=== PATIENT | female | born 1960 | race Caucasian/White ===

== ENCOUNTER 2018-03-17 18:03 | Emergency (ER) | payer OTHER, SELFPAY ==
[2018-03-17 18:21] VITALS: BP 131/77; PULSE 81; RESP 16; O2SAT 100; BMI 24.7
--- NOTE | 2018-03-17 18:35 | ED.RECABL ---
HPI - Recheck/Abnormal Lab/Rx <MOSHE Ortega - Last Filed: 03/17/18 22:13> General Chief Complaint: Recheck/Abnormal Lab/Rx Stated Complaint: ABNORMAL LAB RESULTS,TOLD TO GO TO ER Time Seen by Provider: 03/17/18 18:19 Source: patient Mode of arrival: ambulatory Limitations: no limitations History of Present Illness HPI narrative: Patient presents with chief complaint of reported elevated lipase from outside facility. States that they have reported her lipase is elevated before, and she came here and found to be normal. She is also concerned about her TSH level as the lab reported that her TSH was elevated and wanted to increase her Synthroid. She states she has not changed her Synthroid dosing in years. She states she does have a history of pancreatitis, but does not feel at acute pain at this moment in time. She does complain of some epigastric pain as well as some left lower quadrant pain. She denies any fevers nausea vomiting diarrhea palpitations or any other acute concerns. Her last bowel movement was today at approximately 2:30 pm. and was normal per report. Related Data Home Medications Medication Instructions Recorded Confirmed synbiwj-xctteopnzqmvu-kzxafcok 2 tab PO PRN PRN #0 10/28/17 [Excedrin Extra Strength] cyanocobalamin (vitamin B-12) 1,000 mcg IM QMONTH #0 10/28/17 ferrous sulfate [Iron (ferrous PO QPM #0 10/28/17 sulfate)] polyethylene glycol 3350 [Miralax] 17 gm PO QDAY #0 10/28/17 vit-iron fum-folic ac 1 cap PO QPM #0 10/28/17 [Mynatal] thyroid (pork) [[place] Thyroid] 60 mg PO QDAY #0 10/28/17 Allergies Allergy/AdvReac Type Severity Reaction Status Date / Time No Known Drug Allergies Allergy Verified 03/17/18 19:57 Review of Systems <MOSHE Ortega - Last Filed: 03/17/18 22:13> Review of Systems GENERAL: Denies chills, fatigue, malaise, fever, sweats. HEENT: Denies sinus pain, ear pain, sore throat, difficulty swallowing, dizziness. RESPIRATORY: Denies dyspnea, cough, wheezing, hemoptysis, sputum. CARDIOVASCULAR: See HPI GASTROINTESTINAL: See HPI : Denies dysuria, frequency, incontinence, hematuria, urinary retention. MUSCULOSKELETAL: denies weakness, joint pain, or bony pain SKIN: Denies rash, skin lesions, or other NEUROLOGIC: Denies weakness, headache, numbness, change in speech, confusion, seizures, incoordination. PSYCHIATRIC: No concerning psychosocial issues. 12 point review of systems is negative except for those stated above Exam <MOSHE Ortega - Last Filed: 03/17/18 22:13> Narrative Exam Narrative: GENERAL: This is a well-nourished, in no acute distress with friend at bedside HEAD: Atraumatic. Normocephalic. No temporal or scalp tenderness. EYES: Pupils equal round and reactive. Extraocular motions intact. No scleral icterus. No injection or drainage. ENT: Nose without bleeding, purulent drainage or septal hematoma. Throat without erythema, tonsillar hypertrophy or exudate. Uvula midline. Airway patent. NECK: Trachea midline. No JVD or lymphadenopathy. Supple, nontender, no meningeal signs. CARDIOVASCULAR: Regular rate and rhythm without murmurs, gallops, or rubs. RESPIRATORY: Clear to auscultation. Breath sounds equal bilaterally. No wheezes, rales, or rhonchi. GASTROINTESTINAL: Abdomen flat, active bowel sounds all 4 quadrants. Pain to palpation epigastric area. Pain to palpation right lower quadrant. No guarding noted. Nonrigid abdomen. EXTREMITIES: No clubbing, cyanosis, or edema. No joint tenderness, effusion, or edema noted. BACK: Nontender without deformity or crepitance. No flank tenderness. NEURO: AOx3. SKIN: No rash or erythema. Initial Vital Signs Initial Vital Signs: Vital Signs Pulse Rate 81 03/17/18 18:21 Respiratory Rate 16 03/17/18 18:21 Blood Pressure 131/77 H 03/17/18 18:21 Pulse Oximetry 100 03/17/18 18:21 <Luis Stovlal DO - Last Filed: 03/18/18 01:02> Initial Vital Signs Initial Vital Signs: Vital Signs Pulse Rate 81 03/17/18 18:21 Respiratory Rate 16 03/17/18 18:21 Blood Pressure 131/77 H 03/17/18 18:21 Pulse Oximetry 100 03/17/18 18:21 Course <MOSHE Ortega - Last Filed: 03/17/18 22:13> Additional Information: I checked on the patient several times during her stay in the emergency department. She declined pain medication or nausea medication several times. I gave her a warm blanket several times. I discussed waiting for lab results and then waiting for CT results. I discussed at length return precautions of fever, worsening pain, inability to keep down fluids. I discussed the hypodense and the found on her liver and she plans on following up her primary care provider for further management. Orders Ordered: ED Orders 03/17/18 18:35 EKG-12 Lead Stat 03/17/18 18:50 Amylase Stat Complete Blood Count AUTO DIFF Stat Comprehensive Metabolic Panel Stat Lipase Stat Thyroid Stimulating Hormone Stat Troponin & CK Cardiac Panel Stat 03/17/18 19:57 CT abdomen pelvis w con Stat Discontinued Medications Sodium Chloride (Normal Saline 0.9%) 1,000 mls @ 1,000 mls/hr IV BOLUS ONE Stop: 03/17/18 20:55 Last Infusion: 03/17/18 21:18 Dose: 0 mls/hr Admin: 03/17/18 20:26 Dose: 1,000 mls/hr Sodium Chloride (Normal Saline 0.9%) 1,000 mls @ 1,000 mls/hr IV BOLUS ONE Stop: 03/17/18 20:56 Last Admin: 03/17/18 21:18 Dose: 1,000 mls/hr Vital Signs - 8 hr 03/17/18 18:21 03/17/18 20:33 03/17/18 21:53 Pulse Rate 81 74 75 Respiratory Rate 16 12 15 Blood Pressure 131/77 H Blood Pressure [Left Arm] 122/72 H 127/77 H Pulse Oximetry 100 99 98 <Luis Stovall DO - Last Filed: 03/18/18 01:02> Orders Ordered: ED Orders 03/17/18 18:35 EKG-12 Lead Stat 03/17/18 18:50 Amylase Stat Complete Blood Count AUTO DIFF Stat Comprehensive Metabolic Panel Stat Lipase Stat Thyroid Stimulating Hormone Stat Troponin & CK Cardiac Panel Stat 03/17/18 19:57 CT abdomen pelvis w con Stat Discontinued Medications Sodium Chloride (Normal Saline 0.9%) 1,000 mls @ 1,000 mls/hr IV BOLUS ONE Stop: 03/17/18 20:55 Last Infusion: 03/17/18 21:18 Dose: 0 mls/hr Admin: 03/17/18 20:26 Dose: 1,000 mls/hr Sodium Chloride (Normal Saline 0.9%) 1,000 mls @ 1,000 mls/hr IV BOLUS ONE Stop: 03/17/18 20:56 Last Admin: 03/17/18 21:18 Dose: 1,000 mls/hr Vital Signs - 8 hr 03/17/18 18:21 03/17/18 20:33 03/17/18 21:53 Pulse Rate 81 74 75 Respiratory Rate 16 12 15 Blood Pressure 131/77 H Blood Pressure [Left Arm] 122/72 H 127/77 H Pulse Oximetry 100 99 98 MDM - Recheck/Abnormal Lab/Rx <GERMAN Ortega- - Last Filed: 03/17/18 22:13> Lab Data Attestation: I reviewed the patient's lab results. Result diagrams: 03/17/18 18:50 03/17/18 18:50 Lab Results 03/17/18 03/17/18 03/17/18 Range/Units 18:50 18:50 18:50 WBC 6.9 (4.5-11.0) X10^3/uL RBC 3.86 L (4.0-5.2) X10^6/uL Hgb 12.9 (12.0-16.0) g/dL Hct 37.6 (36-46) % MCV 97.5 (80-100) fL MCH 33.4 (26-34) PG MCHC 34.2 (30-36) % RDW 13.2 (11.6-14.8) % Plt Count 276 (150-400) X10^3/uL Neut % (Auto) 59.0 (50-75) % Lymph % (Auto) 30.8 (25-40) % [place] % (Auto) 8.7 (3-14) % Eos % (Auto) 0.7 L (2-4) % Baso % (Auto) 0.8 (0-2) % Neut # (Auto) 4100 (5797-2294) /uL Sodium 138 (137-145) mmol/L Potassium 3.9 (3.4-5.1) mmol/L Chloride 102 (98-107) mmol/L Carbon Dioxide 28 (22-32) mmol/L BUN 16 (7-17) mg/dL Creatinine 0.80 (0.52-1.04) mg/dL Estimated GFR > 60.0 (>60) mL/min BUN/Creatinine Ratio 20.0 (6-22) Glucose 95 (70-100) mg/dL Calcium 9.5 (8.4-10.2) mg/dL Total Bilirubin 0.5 (0.2-1.3) mg/dL AST 37 H (14-36) IU/L ALT 33 (9-52) IU/L Alkaline Phosphatase 66 (38-126) U/L Total Creatine Kinase 86 (30-135) U/L Troponin I < 0.012 (0.01-0.034) ng/mL Total Protein 6.8 (6.3-8.2) g/dL Albumin 4.4 (3.5-5.0) g/dL Globulin 2.4 (1.7-4.1) g/dL Albumin/Globulin Ratio 1.8 (1.0-2.8) Amylase 167 H (30-110) U/L Lipase 528 H (23-300) U/L TSH 2.59 (0.47-4.68) uIU/mL Imaging Data CT scan - abdomen: Radiologist's impression: [place] [address] CT Scan Report Signed Patient: Mehnaz Ugalde MR#: [id number] : 1960 Acct:[id number] Age/Sex: 57 / F Date of Service: 03/17/18 Loc: ED Accession Number: [id number] Procedure: CT abdomen pelvis w con Ordering Provider: Rand Miguel [facility] PROCEDURE: CT ABDOMEN PELVIS W CON INDICATIONS: 57 year-old woman with elevated lipase, hx pancreatitis TECHNIQUE: After the administration of intravenous contrast, 5 mm thick sections acquired from the diaphragm to the symphysis. 5 mm coronal and sagittal reformats were acquired. For radiation dose reduction, the following was used: automated exposure control, adjustment of mA and/or kV according to patient size. COMPARISON: [facility], MR, ABDOMEN W&W/O CONTRAST, 06/02/2015, 9:16. [facility], MR, ABDOMEN W&W/O CONTRAST, 09/12/2015, 11:28. [facility], US, US ABDOMEN COMPLETE, 04/12/2016, 9:34 AM. [facility], MR, MR ABDOMEN WO/W CONTRAST, 02/02/2016, 11:09 AM. FINDINGS: Image quality: Excellent. ABDOMEN: Lung bases: Lung bases are clear. Heart size is normal. Solid organs: There is a 5 mm indeterminate hepatic hypodensity. Liver is normal in size and enhancement. Gallbladder is surgically absent. Biliary system is non dilated. Pancreas enhances normally. Spleen is normal in size and enhancement. No adrenal nodules. Kidneys demonstrate normal size and enhancement, without hydronephrosis. Peritoneum and bowel: Postsurgical changes are noted in stomach. Bowel loops demonstrate normal wall thickness and caliber. No free fluid or air. Nodes and vessels: No retroperitoneal or mesenteric adenopathy by size criteria. Aorta and inferior vena cava are normal in size. Miscellaneous: No ventral hernias. PELVIS: Genitourinary: Bladder wall thickness is normal. Miscellaneous: No inguinal hernias or adenopathy. Bones: No suspicious bony lesions. No vertebral body compression fractures. IMPRESSION: 1. Normal CT appearance of pancreas. No peripancreatic stranding, pancreatic duct dilation or evidence for pancreatic necrosis. No pancreatic calcification or pseudocyst. 2. Cholecystectomy. 3. Postsurgical changes in stomach. 4. A 5 mm indeterminate hepatic hypodensity, most likely a cyst. Dictated by: Brent Combs M.D. on 03/17/2018 at 20:40 Approved by: Brent Combs M.D. on 03/17/2018 at 20:47 ECG Data Attestation: I personally reviewed and interpreted this ECG as follows: Interpretation: Sinus rhythm. Ventricular rate 72. No ST elevation or depression. No ectopy noted. MDM Narrative Medical decision making narrative: The patient presented with request for verification of her elevated lipase found at an outside lab. She also requested verification of her 2 thyroid levels. She was found have elevated amylase and lipase and correlating epigastric pain. She declined pain medications several times. The she received 2 L of IVF and had a CT scan. Her CT scan did not show any clear findings of pancreatitis. However given her elevated labs, I suggested pushing fluids and clear liquid diet with follow-up with her primary care provider. She was also found have a hypodense mass in her liver. I informed her of this and recommended follow up with her primary care provider. I discussed at length strict return precautions to the emergency department if worsening pain, fevers, inability keep down fluids. Patient has no questions or concerns and plans on following up with her primary care provider. She declined pain medication upon discharge. She also declined nausea medication. <Luis Vinsonarash, DO - Last Filed: 03/18/18 01:02> Lab Data Lab Results 03/17/18 03/17/18 03/17/18 Range/Units 18:50 18:50 18:50 WBC 6.9 (4.5-11.0) X10^3/uL RBC 3.86 L (4.0-5.2) X10^6/uL Hgb 12.9 (12.0-16.0) g/dL Hct 37.6 (36-46) % MCV 97.5 (80-100) fL MCH 33.4 (26-34) PG MCHC 34.2 (30-36) % RDW 13.2 (11.6-14.8) % Plt Count 276 (150-400) X10^3/uL Neut % (Auto) 59.0 (50-75) % Lymph % (Auto) 30.8 (25-40) % [place] % (Auto) 8.7 (3-14) % Eos % (Auto) 0.7 L (2-4) % Baso % (Auto) 0.8 (0-2) % Neut # (Auto) 4100 (6279-0375) /uL Sodium 138 (137-145) mmol/L Potassium 3.9 (3.4-5.1) mmol/L Chloride 102 (98-107) mmol/L Carbon Dioxide 28 (22-32) mmol/L BUN 16 (7-17) mg/dL Creatinine 0.80 (0.52-1.04) mg/dL Estimated GFR > 60.0 (>60) mL/min BUN/Creatinine Ratio 20.0 (6-22) Glucose 95 (70-100) mg/dL Calcium 9.5 (8.4-10.2) mg/dL Total Bilirubin 0.5 (0.2-1.3) mg/dL AST 37 H (14-36) IU/L ALT 33 (9-52) IU/L Alkaline Phosphatase 66 (38-126) U/L Total Creatine Kinase 86 (30-135) U/L Troponin I < 0.012 (0.01-0.034) ng/mL Total Protein 6.8 (6.3-8.2) g/dL Albumin 4.4 (3.5-5.0) g/dL Globulin 2.4 (1.7-4.1) g/dL Albumin/Globulin Ratio 1.8 (1.0-2.8) Amylase 167 H (30-110) U/L Lipase 528 H (23-300) U/L TSH 2.59 (0.47-4.68) uIU/mL Discharge Plan Departure Patient Disposition: Home, Self-Care Clinical Impression: Pancreatitis, Hypodense mass of liver Discharge Date/Time: 03/17/18 22:19 Interventions: ED Discharge Assessment Last Done: 03/17/18 22:18 Instructions: DI for Pancreatitis Activity Restrictions/Additional Instructions: Today we did blood work and imaging. Your CT did not show any signs of pancreatitis, but your lipase and amylase are elevated. Your TSH is 2.59. I would like you to push fluids, do a clear liquid diet and follow up with her primary care provider. Your also noted to have a ?hypodense area? in your liver. I would like you to follow up with your primary care provider regarding this. Come back to the emergency department if you develop any fevers, worsening pain, or inability to keep down fluids. Prescriptions: No Action polyethylene glycol 3350 [Miralax] 17 GM powder in packet 17 gm PO QDAY Qty: 0 RF: 0 thyroid (pork) [[place] Thyroid] 60 MG tablet 60 mg PO QDAY Qty: 0 RF: 0 ferrous sulfate [Iron (ferrous sulfate)] 325 mg (65 mg iron) Tablet PO QPM Qty: 0 RF: 0 vit-iron fum-folic ac [Mynatal] 1 EACH capsule 1 cap PO QPM Qty: 0 RF: 0 cyanocobalamin (vitamin B-12) 1,000 MCG/1 ML solution 1,000 mcg IM QMONTH Qty: 0 RF: 0 ajminqq-mjhxjjyzxrtae-racdiadi [Excedrin Extra Strength] 1 EACH tablet 2 tab PO PRN PRNQty: 0 RF: 0 Referrals: RossiAmanda, CUT OFF MACHINE OPERATOR-BC [Primary Care Provider] - <Luis Stovall DO - Last Filed: 03/18/18 01:02> Cosign ED Attending Bradley Attestation: I was available for consultation during this patient's emergency department encounter
--- NOTE | 2018-03-17 18:47 | ED_ITS ---
HPI - Recheck/Abnormal Lab/Rx <MOSHE Ortega - Last Filed: 03/17/18 22:13> General Chief Complaint: Recheck/Abnormal Lab/Rx Stated Complaint: ABNORMAL LAB RESULTS,TOLD TO GO TO ER Time Seen by Provider: 03/17/18 18:19 Source: patient Mode of arrival: ambulatory Limitations: no limitations History of Present Illness HPI narrative: Patient presents with chief complaint of reported elevated lipase from outside facility. States that they have reported her lipase is elevated before, and she came here and found to be normal. She is also concerned about her TSH level as the lab reported that her TSH was elevated and wanted to increase her Synthroid. She states she has not changed her Synthroid dosing in years. She states she does have a history of pancreatitis, but does not feel at acute pain at this moment in time. She does complain of some epigastric pain as well as some left lower quadrant pain. She denies any fevers nausea vomiting diarrhea palpitations or any other acute concerns. Her last bowel movement was today at approximately 2:30 pm. and was normal per report. Related Data Home Medications Medication Instructions Recorded Confirmed [id number] 2 tab PO PRN PRN #0 10/28/17 [Excedrin Extra Strength] cyanocobalamin (vitamin B-12) 1,000 mcg IM QMONTH #0 10/28/17 ferrous sulfate [Iron (ferrous PO QPM #0 10/28/17 sulfate)] polyethylene glycol 3350 [Miralax] 17 gm PO QDAY #0 10/28/17 vit-iron fum-folic ac 1 cap PO QPM #0 10/28/17 [Mynatal] thyroid (pork) [Ralston Thyroid] 60 mg PO QDAY #0 10/28/17 Allergies Allergy/AdvReac Type Severity Reaction Status Date / Time No Known Drug Allergies Allergy Verified 03/17/18 19:57 Review of Systems <MOSHE Ortega - Last Filed: 03/17/18 22:13> Review of Systems GENERAL: Denies chills, fatigue, malaise, fever, sweats. HEENT: Denies sinus pain, ear pain, sore throat, difficulty swallowing, dizziness. RESPIRATORY: Denies dyspnea, cough, wheezing, hemoptysis, sputum. CARDIOVASCULAR: See HPI GASTROINTESTINAL: See HPI : Denies dysuria, frequency, incontinence, hematuria, urinary retention. MUSCULOSKELETAL: denies weakness, joint pain, or bony pain SKIN: Denies rash, skin lesions, or other NEUROLOGIC: Denies weakness, headache, numbness, change in speech, confusion, seizures, incoordination. PSYCHIATRIC: No concerning psychosocial issues. 12 point review of systems is negative except for those stated above Exam <MOSHE Ortega - Last Filed: 03/17/18 22:13> Narrative Exam Narrative: GENERAL: This is a well-nourished, in no acute distress with friend at bedside HEAD: Atraumatic. Normocephalic. No temporal or scalp tenderness. EYES: Pupils equal round and reactive. Extraocular motions intact. No scleral icterus. No injection or drainage. ENT: Nose without bleeding, purulent drainage or septal hematoma. Throat without erythema, tonsillar hypertrophy or exudate. Uvula midline. Airway patent. NECK: Trachea midline. No JVD or lymphadenopathy. Supple, nontender, no meningeal signs. CARDIOVASCULAR: Regular rate and rhythm without murmurs, gallops, or rubs. RESPIRATORY: Clear to auscultation. Breath sounds equal bilaterally. No wheezes , rales, or rhonchi. GASTROINTESTINAL: Abdomen flat, active bowel sounds all 4 quadrants. Pain to palpation epigastric area. Pain to palpation right lower quadrant. No guarding noted. Nonrigid abdomen. EXTREMITIES: No clubbing, cyanosis, or edema. No joint tenderness, effusion, or edema noted. BACK: Nontender without deformity or crepitance. No flank tenderness. NEURO: AOx3. SKIN: No rash or erythema. Initial Vital Signs Initial Vital Signs: Vital Signs Pulse Rate 81 03/17/18 18:21 Respiratory Rate 16 03/17/18 18:21 Blood Pressure 131/77 H 03/17/18 18:21 Pulse Oximetry 100 03/17/18 18:21 <Luis Stovall DO - Last Filed: 03/18/18 01:02> Initial Vital Signs Initial Vital Signs: Vital Signs Pulse Rate 81 03/17/18 18:21 Respiratory Rate 16 03/17/18 18:21 Blood Pressure 131/77 H 03/17/18 18:21 Pulse Oximetry 100 03/17/18 18:21 Course <MOSHE Ortega - Last Filed: 03/17/18 22:13> Additional Information: I checked on the patient several times during her stay in the emergency department. She declined pain medication or nausea medication several times. I gave her a warm blanket several times. I discussed waiting for lab results and then waiting for CT results. I discussed at length return precautions of fever, worsening pain, inability to keep down fluids. I discussed the hypodense and the found on her liver and she plans on following up her primary care provider for further management. Orders Ordered: ED Orders 03/17/18 18:35 EKG-12 Lead Stat 03/17/18 18:50 Amylase Stat Complete Blood Count AUTO DIFF Stat Comprehensive Metabolic Panel Stat Lipase Stat Thyroid Stimulating Hormone Stat Troponin & CK Cardiac Panel Stat 03/17/18 19:57 CT abdomen pelvis w con Stat Discontinued Medications Sodium Chloride (Normal Saline 0.9%) 1,000 mls @ 1,000 mls/hr IV BOLUS ONE Stop: 03/17/18 20:55 Last Infusion: 03/17/18 21:18 Dose: 0 mls/hr Admin: 03/17/18 20:26 Dose: 1,000 mls/hr Sodium Chloride (Normal Saline 0.9%) 1,000 mls @ 1,000 mls/hr IV BOLUS ONE Stop: 03/17/18 20:56 Last Admin: 03/17/18 21:18 Dose: 1,000 mls/hr Vital Signs - 8 hr 03/17/18 18:21 03/17/18 20:33 03/17/18 21:53 Pulse Rate 81 74 75 Respiratory Rate 16 12 15 Blood Pressure 131/77 H Blood Pressure [Left Arm] 122/72 H 127/77 H Pulse Oximetry 100 99 98 <Luis Stovall DO - Last Filed: 03/18/18 01:02> Orders Ordered: ED Orders 03/17/18 18:35 EKG-12 Lead Stat 03/17/18 18:50 Amylase Stat Complete Blood Count AUTO DIFF Stat Comprehensive Metabolic Panel Stat Lipase Stat Thyroid Stimulating Hormone Stat Troponin & CK Cardiac Panel Stat 03/17/18 19:57 CT abdomen pelvis w con Stat Discontinued Medications Sodium Chloride (Normal Saline 0.9%) 1,000 mls @ 1,000 mls/hr IV BOLUS ONE Stop: 03/17/18 20:55 Last Infusion: 03/17/18 21:18 Dose: 0 mls/hr Admin: 03/17/18 20:26 Dose: 1,000 mls/hr Sodium Chloride (Normal Saline 0.9%) 1,000 mls @ 1,000 mls/hr IV BOLUS ONE Stop: 03/17/18 20:56 Last Admin: 03/17/18 21:18 Dose: 1,000 mls/hr Vital Signs - 8 hr 03/17/18 18:21 03/17/18 20:33 03/17/18 21:53 Pulse Rate 81 74 75 Respiratory Rate 16 12 15 Blood Pressure 131/77 H Blood Pressure [Left Arm] 122/72 H 127/77 H Pulse Oximetry 100 99 98 MDM - Recheck/Abnormal Lab/Rx <GERMAN Ortega- - Last Filed: 03/17/18 22:13> Lab Data Attestation: I reviewed the patient's lab results. Result diagrams: 03/17/18 18:50 03/17/18 18:50 Lab Results 03/17/18 03/17/18 03/17/18 Range/Units 18:50 18:50 18:50 WBC 6.9 (4.5-11.0) X10^3/uL RBC 3.86 L (4.0-5.2) X10^6/uL Hgb 12.9 (12.0-16.0) g/dL Hct 37.6 (36-46) % MCV 97.5 (80-100) fL MCH 33.4 (26-34) PG MCHC 34.2 (30-36) % RDW 13.2 (11.6-14.8) % Plt Count 276 (150-400) X10^3/uL Neut % (Auto) 59.0 (50-75) % Lymph % (Auto) 30.8 (25-40) % [place] % (Auto) 8.7 (3-14) % Eos % (Auto) 0.7 L (2-4) % Baso % (Auto) 0.8 (0-2) % Neut # (Auto) 4100 (2499-2555) /uL Sodium 138 (137-145) mmol/L Potassium 3.9 (3.4-5.1) mmol/L Chloride 102 (98-107) mmol/L Carbon Dioxide 28 (22-32) mmol/L BUN 16 (7-17) mg/dL Creatinine 0.80 (0.52-1.04) mg/dL Estimated GFR > 60.0 (>60) mL/min BUN/Creatinine Ratio 20.0 (6-22) Glucose 95 (70-100) mg/dL Calcium 9.5 (8.4-10.2) mg/dL Total Bilirubin 0.5 (0.2-1.3) mg/dL AST 37 H (14-36) IU/L ALT 33 (9-52) IU/L Alkaline Phosphatase 66 (38-126) U/L Total Creatine Kinase 86 (30-135) U/L Troponin I < 0.012 (0.01-0.034) ng/mL Total Protein 6.8 (6.3-8.2) g/dL Albumin 4.4 (3.5-5.0) g/dL Globulin 2.4 (1.7-4.1) g/dL Albumin/Globulin Ratio 1.8 (1.0-2.8) Amylase 167 H (30-110) U/L Lipase 528 H (23-300) U/L TSH 2.59 (0.47-4.68) uIU/mL Imaging Data CT scan - abdomen: Radiologist's impression: [place] [address] CT Scan Report Signed Patient: Mehnaz Ugalde MR#: [id number] : 1960 Acct:[id number] Age/Sex: 57 / F Date of Service: 03/17/18 Loc: ED Accession Number: [id number] Procedure: CT abdomen pelvis w con Ordering Provider: Rand Miguel [facility] PROCEDURE: CT ABDOMEN PELVIS W CON INDICATIONS: 57 year-old woman with elevated lipase, hx pancreatitis TECHNIQUE: After the administration of intravenous contrast, 5 mm thick sections acquired from the diaphragm to the symphysis. 5 mm coronal and sagittal reformats were acquired. For radiation dose reduction, the following was used: automated exposure control, adjustment of mA and/or kV according to patient size. COMPARISON: [facility], MR, ABDOMEN W&W/O CONTRAST, 06/02/2015, 9: 16. [facility], MR, ABDOMEN W&W/O CONTRAST, 09/12/2015, 11:28. [facility], US, US ABDOMEN COMPLETE, 04/12/2016, 9:34 AM. [facility] , MR, MR ABDOMEN WO/W CONTRAST, 02/02/2016, 11:09 AM. FINDINGS: Image quality: Excellent. ABDOMEN: Lung bases: Lung bases are clear. Heart size is normal. Solid organs: There is a 5 mm indeterminate hepatic hypodensity. Liver is normal in size and enhancement. Gallbladder is surgically absent. Biliary system is non dilated. Pancreas enhances normally. Spleen is normal in size and enhancement. No adrenal nodules. Kidneys demonstrate normal size and enhancement, without hydronephrosis. Peritoneum and bowel: Postsurgical changes are noted in stomach. Bowel loops demonstrate normal wall thickness and caliber. No free fluid or air. Nodes and vessels: No retroperitoneal or mesenteric adenopathy by size criteria. Aorta and inferior vena cava are normal in size. Miscellaneous: No ventral hernias. PELVIS: Genitourinary: Bladder wall thickness is normal. Miscellaneous: No inguinal hernias or adenopathy. Bones: No suspicious bony lesions. No vertebral body compression fractures. IMPRESSION: 1. Normal CT appearance of pancreas. No peripancreatic stranding, pancreatic duct dilation or evidence for pancreatic necrosis. No pancreatic calcification or pseudocyst. 2. Cholecystectomy. 3. Postsurgical changes in stomach. 4. A 5 mm indeterminate hepatic hypodensity, most likely a cyst. Dictated by: Brent Combs M.D. on 03/17/2018 at 20:40 Approved by: Brent Combs M.D. on 03/17/2018 at 20:47 ECG Data Attestation: I personally reviewed and interpreted this ECG as follows: Interpretation: Sinus rhythm. Ventricular rate 72. No ST elevation or depression. No ectopy noted. MDM Narrative Medical decision making narrative: The patient presented with request for verification of her elevated lipase found at an outside lab. She also requested verification of her 2 thyroid levels. She was found have elevated amylase and lipase and correlating epigastric pain. She declined pain medications several times. The she received 2 L of IVF and had a CT scan. Her CT scan did not show any clear findings of pancreatitis. However given her elevated labs, I suggested pushing fluids and clear liquid diet with follow-up with her primary care provider. She was also found have a hypodense mass in her liver. I informed her of this and recommended follow up with her primary care provider. I discussed at length strict return precautions to the emergency department if worsening pain, fevers, inability keep down fluids. Patient has no questions or concerns and plans on following up with her primary care provider. She declined pain medication upon discharge. She also declined nausea medication. <Luis Vinsonarash, DO - Last Filed: 03/18/18 01:02> Lab Data Lab Results 03/17/18 03/17/18 03/17/18 Range/Units 18:50 18:50 18:50 WBC 6.9 (4.5-11.0) X10^3/uL RBC 3.86 L (4.0-5.2) X10^6/uL Hgb 12.9 (12.0-16.0) g/dL Hct 37.6 (36-46) % MCV 97.5 (80-100) fL MCH 33.4 (26-34) PG MCHC 34.2 (30-36) % RDW 13.2 (11.6-14.8) % Plt Count 276 (150-400) X10^3/uL Neut % (Auto) 59.0 (50-75) % Lymph % (Auto) 30.8 (25-40) % [place] % (Auto) 8.7 (3-14) % Eos % (Auto) 0.7 L (2-4) % Baso % (Auto) 0.8 (0-2) % Neut # (Auto) 4100 (5562-4888) /uL Sodium 138 (137-145) mmol/L Potassium 3.9 (3.4-5.1) mmol/L Chloride 102 (98-107) mmol/L Carbon Dioxide 28 (22-32) mmol/L BUN 16 (7-17) mg/dL Creatinine 0.80 (0.52-1.04) mg/dL Estimated GFR > 60.0 (>60) mL/min BUN/Creatinine Ratio 20.0 (6-22) Glucose 95 (70-100) mg/dL Calcium 9.5 (8.4-10.2) mg/dL Total Bilirubin 0.5 (0.2-1.3) mg/dL AST 37 H (14-36) IU/L ALT 33 (9-52) IU/L Alkaline Phosphatase 66 (38-126) U/L Total Creatine Kinase 86 (30-135) U/L Troponin I < 0.012 (0.01-0.034) ng/mL Total Protein 6.8 (6.3-8.2) g/dL Albumin 4.4 (3.5-5.0) g/dL Globulin 2.4 (1.7-4.1) g/dL Albumin/Globulin Ratio 1.8 (1.0-2.8) Amylase 167 H (30-110) U/L Lipase 528 H (23-300) U/L TSH 2.59 (0.47-4.68) uIU/mL Discharge Plan Departure Patient Disposition: Home, Self-Care Clinical Impression: Pancreatitis, Hypodense mass of liver Discharge Date/Time: 03/17/18 22:19 Interventions: ED Discharge Assessment Last Done: 03/17/18 22:18 Instructions: DI for Pancreatitis Activity Restrictions/Additional Instructions: Today we did blood work and imaging. Your CT did not show any signs of pancreatitis, but your lipase and amylase are elevated. Your TSH is 2.59. I would like you to push fluids, do a clear liquid diet and follow up with her primary care provider. Your also noted to have a ?hypodense area? in your liver. I would like you to follow up with your primary care provider regarding this. Come back to the emergency department if you develop any fevers, worsening pain, or inability to keep down fluids. Prescriptions: No Action polyethylene glycol 3350 [Miralax] 17 GM powder in packet 17 gm PO QDAY Qty: 0 RF: 0 thyroid (pork) [Ralston Thyroid] 60 MG tablet 60 mg PO QDAY Qty: 0 RF: 0 ferrous sulfate [Iron (ferrous sulfate)] 325 mg (65 mg iron) Tablet PO QPM Qty: 0 RF: 0 vit-iron fum-folic ac [Mynatal] 1 EACH capsule 1 cap PO QPM Qty: 0 RF: 0 cyanocobalamin (vitamin B-12) 1,000 MCG/1 ML solution 1,000 mcg IM QMONTH Qty: 0 RF: 0 vxazehy-qfzgqhxzrojvg-uwagzdbs [Excedrin Extra Strength] 1 EACH tablet 2 tab PO PRN PRNQty: 0 RF: 0 Referrals: RossiAmanda, [facility] [Primary Care Provider] - <Luis Stovall DO - Last Filed: 03/18/18 01:02> Cosign ED Attending Bradley Attestation: I was available for consultation during this patient's emergency department encounter
[2018-03-17 18:58] LABS: Add Manual Diff / Slide Review NO; Basophils Percent Auto 0.8 % (0-2); Eosinophils Percent Auto 0.7 % (2-4); Hematocrit 37.6 % (36-46); Hemoglobin 12.9 g/dL (12.0-16.0); Lymphocytes Percent Auto 30.8 % (25-40); Mean Corpuscular HGB Conc 34.2 % (30-36); Mean Corpuscular Hemoglobin 33.4 PG (26-34); Mean Corpuscular Volume 97.5 fL (80-100); Monocytes Percent Auto 8.7 % (3-14); Neutrophils Absolute Auto 4100 /uL (3000-5900); Platelet Count 276 X10^3/uL (150-400); Red Blood Cell Count 3.86 X10^6/uL (4.0-5.2); Red Cell Distribution Width 13.2 % (11.6-14.8); White Blood Cell Count 6.9 X10^3/uL (4.5-11.0)
[2018-03-17 19:20] LABS: Alanine Aminotransferase 33 IU/L (9-52); Albumin 4.4 g/dL (3.5-5.0); Albumin Globulin Ratio 1.8 (1.0-2.8); Alkaline Phosphatase 66 U/L (38-126); Amylase 167 U/L (30-110); Aspartate Aminotransferase 37 IU/L (14-36); Bilirubin Total 0.5 mg/dL (0.2-1.3); Blood Urea Nitrogen 16 mg/dL (7-17); Calcium 9.5 mg/dL (8.4-10.2); Carbon Dioxide 28 mmol/L (22-32); Chloride 102 mmol/L (98-107); Creatine Kinase 86 U/L (30-135); Estimated Glomerular Filt Rate > 60.0 mL/min (>60); Globulin 2.4 g/dL (1.7-4.1); Glucose 95 mg/dL (70-100); HEMOLYSIS < 15 (0-50); Lipase 528 U/L (23-300); Potassium 3.9 mmol/L (3.4-5.1); Sodium 138 mmol/L (137-145); Total Protein 6.8 g/dL (6.3-8.2)
[2018-03-17 19:32] LABS: Troponin I < 0.012 ng/mL (0.01-0.034)
[2018-03-17 19:50] LABS: Thyroid Stimulating Hormone 2.59 uIU/mL (0.47-4.68)
--- NOTE | 2018-03-17 19:57 | DI.CT.S_ITS ---
PROCEDURE: CT ABDOMEN PELVIS W CON INDICATIONS: 57 year-old woman with elevated lipase, hx pancreatitis TECHNIQUE: After the administration of intravenous contrast, 5 mm thick sections acquired from the diaphragm to the symphysis. 5 mm coronal and sagittal reformats were acquired. For radiation dose reduction, the following was used: automated exposure control, adjustment of mA and/or kV according to patient size. COMPARISON: [facility], MR, ABDOMEN W&W/O CONTRAST, 06/02/2015, 9:16. [facility], MR, ABDOMEN W&W/O CONTRAST, 09/12/2015, 11:28. [facility], US, US ABDOMEN COMPLETE, 04/12/2016, 9:34 AM. [facility], MR, MR ABDOMEN WO/W CONTRAST, 02/02/2016, 11:09 AM. FINDINGS: Image quality: Excellent. ABDOMEN: Lung bases: Lung bases are clear. Heart size is normal. Solid organs: There is a 5 mm indeterminate hepatic hypodensity. Liver is normal in size and enhancement. Gallbladder is surgically absent. Biliary system is non dilated. Pancreas enhances normally. Spleen is normal in size and enhancement. No adrenal nodules. Kidneys demonstrate normal size and enhancement, without hydronephrosis. Peritoneum and bowel: Postsurgical changes are noted in stomach. Bowel loops demonstrate normal wall thickness and caliber. No free fluid or air. Nodes and vessels: No retroperitoneal or mesenteric adenopathy by size criteria. Aorta and inferior vena cava are normal in size. Miscellaneous: No ventral hernias. PELVIS: Genitourinary: Bladder wall thickness is normal. Miscellaneous: No inguinal hernias or adenopathy. Bones: No suspicious bony lesions. No vertebral body compression fractures. IMPRESSION: 1. Normal CT appearance of pancreas. No peripancreatic stranding, pancreatic duct dilation or evidence for pancreatic necrosis. No pancreatic calcification or pseudocyst. 2. Cholecystectomy. 3. Postsurgical changes in stomach. 4. A 5 mm indeterminate hepatic hypodensity, most likely a cyst. Dictated by: Brent Combs M.D. on 03/17/2018 at 20:40 Approved by: Brent Combs M.D. on 03/17/2018 at 20:47
[2018-03-17] MEDS: SODIUM CHLORIDE 0.9% 1,000 ML 1000 ML IV ×2 (20:26→21:18)
[2018-03-17 20:33] VITALS: BP 122/72; PULSE 74; RESP 12; O2SAT 99
[2018-03-17 21:53] VITALS: BP 127/77; PULSE 75; RESP 15; O2SAT 98
== END 2018-03-17 22:19 | disposition home or self-care (01) ==
PROVIDERS: Emergency Provider Nurse Practitioner Family; PCP Nurse Practitioner Family
DX: K85.90 Acute pancreatitis without necrosis or infection, unspecified (principal); R16.0 Hepatomegaly, not elsewhere classified
CPT/HCPCS: 36591; 74177; 80053; 81003; 82150; 82550; 82553; 83690; 84443; 84484; 85025; 93005; 93010; 96360; 99283; 99285; Q9967

== ENCOUNTER 2018-10-03 13:42 | Emergency (ER) | payer OTHER, SELFPAY ==
[2018-10-03 13:47] VITALS: BP 135/80; PULSE 65; RESP 14; TEMP 36.3; O2SAT 100; BMI 20.9
--- NOTE | 2018-10-03 14:10 | ED.ABDPAIN ---
HPI - Abdominal Pain General Chief Complaint: Abdominal Pain Stated Complaint: pancreatitis, nauseous, dizzy, head pain Time Seen by Provider: 10/03/18 13:47 Source: patient Mode of arrival: ambulatory Limitations: no limitations History of Present Illness HPI narrative: Patient is a 58-year-old female presenting with abdominal pain. She has a history of pancreatitis and feels like this may be another attack. She has had multiple surgeries including niece in and Cristofer-en-Y which she says has led to her pancreatitis. 3 days ago she had severe abdominal pain in the central of her stomach cause her to bend over. She today she feels like the pain is worse it is radiating through to her back which is abnormal. She has also had a headache on the left side of her head today she feels a little dizzy and lightheaded no nausea or vomiting. No visual changes or weakness. No chest pain or heart palpitations. She has tried to drink water today he does not feel like she is terribly dehydrated she also took Excedrin and had 2 cups of tea which are abnormal for her. She said the heparin has. MD complaint: abdominal pain Onset (ago): day(s) (3) Related Data Home Medications Medication Instructions Recorded Confirmed [id number]-nwiznvwgmmapa-eewokpax 2 tab PO PRN PRN #0 10/28/17 [Excedrin Extra Strength] cyanocobalamin (vitamin B-12) 1,000 mcg IM QMONTH #0 10/28/17 ferrous sulfate [Iron (ferrous PO QPM #0 10/28/17 sulfate)] polyethylene glycol 3350 [Miralax] 17 gm PO QDAY #0 10/28/17 vit-iron fum-folic ac 1 cap PO QPM #0 10/28/17 [Mynatal] thyroid (pork) [Marcell Thyroid] 60 mg PO QDAY #0 10/28/17 Allergies Allergy/AdvReac Type Severity Reaction Status Date / Time No Known Drug Allergies Allergy Verified 10/03/18 14:00 Review of Systems Review of Systems ROS Unobtainable: All systems reviewed & are unremarkable except as noted in HPI and below ENT Ears, Nose, Mouth, and Throat: Denies change in voice, Denies neck pain and Denies sore throat Cardiovascular Denies chest pain, Denies irregular heart rhythm, Reports lightheadedness, Denies palpitations, Denies dyspnea, Denies dyspnea on exertion and Denies orthopnea Respiratory Denies cough, Denies dyspnea, Denies dyspnea on exertion and Denies wheezing Gastrointestinal Gastrointestinal: Reports as per HPI, Reports abdominal pain, Denies diarrhea and Denies nausea Genitourinary Denies hematuria, Denies flank pain, Denies urinary incontinence and Denies urinary urgency Musculoskeletal Denies neck pain Integumentary/Breasts Denies pruritus, Denies erythema, Denies rash and Denies wounds Endocrine Denies palpitations Allergic/Immunologic Denies wheezing [facility] Medical History Hypothyroid (Acute) Pancreatitis (Acute) Surgical History History of Cristofer-en-Y gastric bypass (Acute) Social History Smoking Status: Unknown if ever smoked Social History Smoking Status: Unknown if ever smoked Exam Initial Vital Signs Initial Vital Signs: Vital Signs Temperature 97.4 F L 10/03/18 13:47 Pulse Rate 65 10/03/18 13:47 Respiratory Rate 14 10/03/18 13:47 Blood Pressure 135/80 10/03/18 13:47 Pulse Oximetry 100 10/03/18 13:47 GENERAL: well acute distress HEENT: Head atraumatic,EOMI, pupils reactive, CARDIOVASCULAR: Regular rate and rhythm without murmurs, rubs or gallops. RESPIRATORY: Breath sounds equal bilaterally, no wheezes rales or rhonchi. ABDOMEN: Soft, mild epigastric pain no guarding or rebound EXTREMITIES: Normal range of motion, no clubbing or edema. Neurovascularly intact NEUROLOGICAL: Alert and oriented x4.Normal gait and speech. SKIN: Warm, dry, no laceration, no petechiae, no rashes or lesions. Course Orders Ordered: ED Orders 10/03/18 14:15 CT abdomen pelvis w con Stat 10/03/18 14:20 Complete Blood Count AUTO DIFF Stat Comprehensive Metabolic Panel Stat Lipase Stat Discontinued Medications Sodium Chloride (Normal Saline 0.9%) 1,000 mls @ 1,000 mls/hr IV CONT BAILEY Last Infusion: 10/03/18 15:33 Dose: 0 mls/hr Admin: 10/03/18 14:28 Dose: 1,000 mls/hr Ketorolac Tromethamine (Toradol) 30 mg IV NOW ONE Stop: 10/03/18 17:03 Last Admin: 10/03/18 17:05 Dose: 30 mg Vital Signs - 8 hr 10/03/18 13:47 10/03/18 15:15 10/03/18 16:30 Temperature 97.4 F L Pulse Rate 65 72 79 Respiratory Rate 14 18 16 Blood Pressure 135/80 Blood Pressure [Left Arm] 124/64 117/74 Pulse Oximetry 100 99 99 MDM - Abdominal Pain Medical Records Attestation: I reviewed the patient's medical records. Lab Data Attestation: I reviewed the patient's lab results. Result diagrams: 10/03/18 14:20 10/03/18 14:20 Lab Results 10/03/18 10/03/18 Range/Units 14:20 14:20 WBC 7.7 (4.5-11.0) X10^3/uL RBC 3.93 L (4.0-5.2) X10^6/uL Hgb 12.9 (12.0-16.0) g/dL Hct 38.9 (36-46) % MCV 98.8 (80-100) fL MCH 32.8 (26-34) PG MCHC 33.2 (30-36) % RDW 13.3 (11.6-14.8) % Plt Count 252 (150-400) X10^3/uL Neut % (Auto) 65.4 (50-75) % Lymph % (Auto) 26.0 (25-40) % [place] % (Auto) 7.3 (3-14) % Eos % (Auto) 0.9 L (2-4) % Baso % (Auto) 0.4 (0-2) % Neut # (Auto) 5000 (9156-3110) /uL Lymph # (Auto) 2000 (0979-4875) /uL [place] # (Auto) 600 (0-900) /uL Eos # (Auto) 100 (0-450) /uL Baso # (Auto) 0 (0-100) /uL Sodium 132 L (137-145) mmol/L Potassium 3.8 (3.4-5.1) mmol/L Chloride 99 (98-107) mmol/L Carbon Dioxide 24 (22-32) mmol/L BUN 17 (7-17) mg/dL Creatinine 0.60 (0.52-1.04) mg/dL Estimated GFR > 60.0 (>60) mL/min BUN/Creatinine Ratio 28.3 H (6-22) Glucose 91 (70-100) mg/dL Calcium 9.5 (8.4-10.2) mg/dL Total Bilirubin 0.6 (0.2-1.3) mg/dL AST 37 H (14-36) IU/L ALT 40 (9-52) IU/L Alkaline Phosphatase 63 (38-126) U/L Total Protein 7.1 (6.3-8.2) g/dL Albumin 4.5 (3.5-5.0) g/dL Globulin 2.6 (1.7-4.1) g/dL Albumin/Globulin Ratio 1.7 (1.0-2.8) Lipase 94 (23-300) U/L Point of care testing: Urine Dip Bedside Urine Glucose Negative Bedside Urine Bilirubin - Negative Bedside Urine Ketone - Negative Urine Specific [place] 1.010 Bedside Urine Occult Blood - Negative Bedside Urine pH 6.5 Bedside Urine Protein - Negative Bedside Urine Urobilinogen - Negative Bedside Urine Nitrite - Negative Bedside Urine Leukocytes - Negative Esterase Imaging Data CT scan - abdomen: Radiologist's impression: PROCEDURE: CT ABDOMEN PELVIS W CON INDICATIONS: abdominal pain hx pancreatitis TECHNIQUE: After the administration of intravenous contrast, 5 mm thick sections acquired from the diaphragm to the symphysis. 5 mm coronal and sagittal reformats were acquired. For radiation dose reduction, the following was used: automated exposure control, adjustment of mA and/or kV according to patient size. COMPARISON: [facility], CT, CT ABDOMEN PELVIS W CON, 03/17/2018, 19:55. FINDINGS: Image quality: Excellent. ABDOMEN: Lung bases: Lung bases are clear. Heart size is normal. Solid organs: Liver is normal in size and enhancement. 5 mm hypoattenuating lesion in the right lobe the liver is stable. Gallbladder is surgically absent. Biliary system is non dilated. Pancreas enhances normally. Spleen is normal in size and enhancement. No adrenal nodules. Kidneys demonstrate normal size and enhancement, without hydronephrosis. Peritoneum and bowel: Postsurgical changes involving the stomach are stable compared to prior exam. Bowel loops demonstrate normal wall thickness and caliber. Large amount of stool noted in the right colon and transverse colon. Moderate amount of stool in the sigmoid colon. No free fluid or air. The appendix is not definitely visualized. Nodes and vessels: No retroperitoneal or mesenteric adenopathy by size criteria. Aorta and inferior vena cava are normal in size. Miscellaneous: No ventral hernias. PELVIS: Genitourinary: Bladder wall thickness is normal. Uterus is atrophied. Miscellaneous: No inguinal hernias or adenopathy. Bones: No suspicious bony lesions. No vertebral body compression fractures. Spine degenerative disease and facet arthropathy noted. IMPRESSION: 1. Postsurgical changes stable compared to prior examination. 2. No CT evidence of pancreatitis. 3. No dilated loops of bowel or bowel wall thickening. 4. Severe fecal loading in the right and transverse colon and moderate fecal A. involving the sigmoid colon clear. Please correlate with clinical data. 5. The appendix is not definitely visualized. No free fluid or free air identified adjacent to the cecum, however early manifestation of acute appendicitis cannot be excluded. Dictated by: Basia Melvin MD, PhD on 10/03/2018 at 16:59 MDM Narrative Medical decision making narrative: the patient was much relieved to hear that her lipase was normal. She thinks that her job and stress are significant contributors to her pain. We talked about coping with stress something that she is actually quite familiar with. His she knows what works for her she honestly just needs to do it. No sign of pancreatitis or any other intra-abdominal abnormality. Patient feels ready and able to go home. Discharge Plan Departure Patient Disposition: Home Clinical Impression: Abdominal pain Qualifiers: Abdominal location: generalized Qualified Code(s): R10.84 - Generalized abdominal pain Discharge Date/Time: 10/03/18 17:28 Interventions: ED Discharge Assessment Last Done: 10/03/18 17:28 Instructions: DI for Abdominal Pain-Adult Activity Restrictions/Additional Instructions: *You have been diagnosed with abdominal pain *What to do: at this time no evidence of pancreatitis. CT scan and blood work within normal limits and reassuring. *Continue to take medications as directed *Follow up with your primary care provider in 2-3 days *Return to ER if you should have Increasing abdominal pain, persistent vomiting, past now or any new, worsening or concerning symptoms Prescriptions: No Action polyethylene glycol 3350 [Miralax] 17 GM powder in packet 17 gm PO QDAY Qty: 0 RF: 0 thyroid (pork) [Marcell Thyroid] 60 MG tablet 60 mg PO QDAY Qty: 0 RF: 0 ferrous sulfate [Iron (ferrous sulfate)] 325 mg (65 mg iron) tablet PO QPM Qty: 0 RF: 0 vit-iron fum-folic ac [Mynatal] 1 EACH capsule 1 cap PO QPM Qty: 0 RF: 0 cyanocobalamin (vitamin B-12) 1,000 MCG/1 ML solution 1,000 mcg IM QMONTH Qty: 0 RF: 0 djnaayp-qejyypfztscvy-bisygpei [Excedrin Extra Strength] 1 EACH tablet 2 tab PO PRN PRNQty: 0 RF: 0 Referrals: Amanda Richey TACTICAL DEBRIEFER-BC [Primary Care Provider] -
--- NOTE | 2018-10-03 14:14 | ED_ITS ---
HPI - Abdominal Pain General Chief Complaint: Abdominal Pain Stated Complaint: pancreatitis, nauseous, dizzy, head pain Time Seen by Provider: 10/03/18 13:47 Source: patient Mode of arrival: ambulatory Limitations: no limitations History of Present Illness HPI narrative: Patient is a 58-year-old female presenting with abdominal pain. She has a history of pancreatitis and feels like this may be another attack. She has had multiple surgeries including niece in and Cristofer-en-Y which she says has led to her pancreatitis. 3 days ago she had severe abdominal pain in the central of her stomach cause her to bend over. She today she feels like the pain is worse it is radiating through to her back which is abnormal. She has also had a headache on the left side of her head today she feels a little dizzy and lightheaded no nausea or vomiting. No visual changes or weakness. No chest pain or heart palpitations. She has tried to drink water today he does not feel like she is terribly dehydrated she also took Excedrin and had 2 cups of tea which are abnormal for her. She said the heparin has. MD complaint: abdominal pain Onset (ago): day(s) (3) Related Data Home Medications Medication Instructions Recorded Confirmed zeieqxu-cnlxifkehqzno-hfpgwyvi 2 tab PO PRN PRN #0 10/28/17 [Excedrin Extra Strength] cyanocobalamin (vitamin B-12) 1,000 mcg IM QMONTH #0 10/28/17 ferrous sulfate [Iron (ferrous PO QPM #0 10/28/17 sulfate)] polyethylene glycol 3350 [Miralax] 17 gm PO QDAY #0 10/28/17 vit-iron fum-folic ac 1 cap PO QPM #0 10/28/17 [Mynatal] thyroid (pork) [Isabella Thyroid] 60 mg PO QDAY #0 10/28/17 Allergies Allergy/AdvReac Type Severity Reaction Status Date / Time No Known Drug Allergies Allergy Verified 10/03/18 14:00 Review of Systems Review of Systems ROS Unobtainable: All systems reviewed & are unremarkable except as noted in HPI and below ENT Ears, Nose, Mouth, and Throat: Denies change in voice, Denies neck pain and Denies sore throat Cardiovascular Denies chest pain, Denies irregular heart rhythm, Reports lightheadedness, Denies palpitations, Denies dyspnea, Denies dyspnea on exertion and Denies o rthopnea Respiratory Denies cough, Denies dyspnea, Denies dyspnea on exertion and Denies wheezing Gastrointestinal Gastrointestinal: Reports as per HPI, Reports abdominal pain, Denies diarrhea and Denies nausea Genitourinary Denies hematuria, Denies flank pain, Denies urinary incontinence and Denies urinary urgency Musculoskeletal Denies neck pain Integumentary/Breasts Denies pruritus, Denies erythema, Denies rash and Denies wounds Endocrine Denies palpitations Allergic/Immunologic Denies wheezing [facility] Medical History Hypothyroid (Acute) Pancreatitis (Acute) Surgical History History of Cristofer-en-Y gastric bypass (Acute) Social History Smoking Status: Unknown if ever smoked Social History Smoking Status: Unknown if ever smoked Exam Initial Vital Signs Initial Vital Signs: Vital Signs Temperature 97.4 F L 10/03/18 13:47 Pulse Rate 65 10/03/18 13:47 Respiratory Rate 14 10/03/18 13:47 Blood Pressure 135/80 10/03/18 13:47 Pulse Oximetry 100 10/03/18 13:47 GENERAL: well acute distress HEENT: Head atraumatic,EOMI, pupils reactive, CARDIOVASCULAR: Regular rate and rhythm without murmurs, rubs or gallops. RESPIRATORY: Breath sounds equal bilaterally, no wheezes rales or rhonchi. ABDOMEN: Soft, mild epigastric pain no guarding or rebound EXTREMITIES: Normal range of motion, no clubbing or edema. Neurovascularly intact NEUROLOGICAL: Alert and oriented x4.Normal gait and speech. SKIN: Warm, dry, no laceration, no petechiae, no rashes or lesions. Course Orders Ordered: ED Orders 10/03/18 14:15 CT abdomen pelvis w con Stat 10/03/18 14:20 Complete Blood Count AUTO DIFF Stat Comprehensive Metabolic Panel Stat Lipase Stat Discontinued Medications Sodium Chloride (Normal Saline 0.9%) 1,000 mls @ 1,000 mls/hr IV CONT BAILEY Last Infusion: 10/03/18 15:33 Dose: 0 mls/hr Admin: 10/03/18 14:28 Dose: 1,000 mls/hr Ketorolac Tromethamine (Toradol) 30 mg IV NOW ONE Stop: 10/03/18 17:03 Last Admin: 10/03/18 17:05 Dose: 30 mg Vital Signs - 8 hr 10/03/18 13:47 10/03/18 15:15 10/03/18 16:30 Temperature 97.4 F L Pulse Rate 65 72 79 Respiratory Rate 14 18 16 Blood Pressure 135/80 Blood Pressure [Left Arm] 124/64 117/74 Pulse Oximetry 100 99 99 MDM - Abdominal Pain Medical Records Attestation: I reviewed the patient's medical records. Lab Data Attestation: I reviewed the patient's lab results. Result diagrams: 10/03/18 14:20 10/03/18 14:20 Lab Results 10/03/18 10/03/18 Range/Units 14:20 14:20 WBC 7.7 (4.5-11.0) X10^3/uL RBC 3.93 L (4.0-5.2) X10^6/uL Hgb 12.9 (12.0-16.0) g/dL Hct 38.9 (36-46) % MCV 98.8 (80-100) fL MCH 32.8 (26-34) PG MCHC 33.2 (30-36) % RDW 13.3 (11.6-14.8) % Plt Count 252 (150-400) X10^3/uL Neut % (Auto) 65.4 (50-75) % Lymph % (Auto) 26.0 (25-40) % [place] % (Auto) 7.3 (3-14) % Eos % (Auto) 0.9 L (2-4) % Baso % (Auto) 0.4 (0-2) % Neut # (Auto) 5000 (0471-7844) /uL Lymph # (Auto) 2000 (3511-8820) /uL [place] # (Auto) 600 (0-900) /uL Eos # (Auto) 100 (0-450) /uL Baso # (Auto) 0 (0-100) /uL Sodium 132 L (137-145) mmol/L Potassium 3.8 (3.4-5.1) mmol/L Chloride 99 (98-107) mmol/L Carbon Dioxide 24 (22-32) mmol/L BUN 17 (7-17) mg/dL Creatinine 0.60 (0.52-1.04) mg/dL Estimated GFR > 60.0 (>60) mL/min BUN/Creatinine Ratio 28.3 H (6-22) Glucose 91 (70-100) mg/dL Calcium 9.5 (8.4-10.2) mg/dL Total Bilirubin 0.6 (0.2-1.3) mg/dL AST 37 H (14-36) IU/L ALT 40 (9-52) IU/L Alkaline Phosphatase 63 (38-126) U/L Total Protein 7.1 (6.3-8.2) g/dL Albumin 4.5 (3.5-5.0) g/dL Globulin 2.6 (1.7-4.1) g/dL Albumin/Globulin Ratio 1.7 (1.0-2.8) Lipase 94 (23-300) U/L Point of care testing: Urine Dip Bedside Urine Glucose Negative Bedside Urine Bilirubin - Negative Bedside Urine Ketone - Negative Urine Specific [place] 1.010 Bedside Urine Occult Blood - Negative Bedside Urine pH 6.5 Bedside Urine Protein - Negative Bedside Urine Urobilinogen - Negative Bedside Urine Nitrite - Negative Bedside Urine Leukocytes - Negative Esterase Imaging Data CT scan - abdomen: Radiologist's impression: PROCEDURE: CT ABDOMEN PELVIS W CON INDICATIONS: abdominal pain hx pancreatitis TECHNIQUE: After the administration of intravenous contrast, 5 mm thick sections acquired from the diaphragm to the symphysis. 5 mm coronal and sagittal reformats were acquired. For radiation dose reduction, the following was used: automated exposure control, adjustment of mA and/or kV according to patient size. COMPARISON: [facility], CT, CT ABDOMEN PELVIS W CON, 03/17/2018, 19:55. FINDINGS: Image quality: Excellent. ABDOMEN: Lung bases: Lung bases are clear. Heart size is normal. Solid organs: Liver is normal in size and enhancement. 5 mm hypoattenuating lesion in the right lobe the liver is stable. Gallbladder is surgically absent. Biliary system is non dilated. Pancreas enhances normally. Spleen is normal in size and enhancement. No adrenal nodules. Kidneys demonstrate normal size and enhancement, without hydronephrosis. Peritoneum and bowel: Postsurgical changes involving the stomach are stable compared to prior exam. Bowel loops demonstrate normal wall thickness and caliber. Large amount of stool noted in the right colon and transverse colon. Moderate amount of stool in the sigmoid colon. No free fluid or air. The appendix is not definitely visualized. Nodes and vessels: No retroperitoneal or mesenteric adenopathy by size criteria. Aorta and inferior vena cava are normal in size. Miscellaneous: No ventral hernias. PELVIS: Genitourinary: Bladder wall thickness is normal. Uterus is atrophied. Miscellaneous: No inguinal hernias or adenopathy. Bones: No suspicious bony lesions. No vertebral body compression fractures. Spine degenerative disease and facet arthropathy noted. IMPRESSION: 1. Postsurgical changes stable compared to prior examination. 2. No CT evidence of pancreatitis. 3. No dilated loops of bowel or bowel wall thickening. 4. Severe fecal loading in the right and transverse colon and moderate fecal A. involving the sigmoid colon clear. Please correlate with clinical data. 5. The appendix is not definitely visualized. No free fluid or free air identified adjacent to the cecum, however early manifestation of acute appendicitis cannot be excluded. Dictated by: Basia Melvin MD, PhD on 10/03/2018 at 16:59 MDM Narrative Medical decision making narrative: the patient was much relieved to hear that her lipase was normal. She thinks that her job and stress are significant contributors to her pain. We talked about coping with stress something that she is actually quite familiar with. His she knows what works for her she honestly just needs to do it. No sign of pancreatitis or any other intra- abdominal abnormality. Patient feels ready and able to go home. Discharge Plan Departure Patient Disposition: Home Clinical Impression: Abdominal pain Qualifiers: Abdominal location: generalized Qualified Code(s): R10.84 - Generalized abdominal pain Discharge Date/Time: 10/03/18 17:28 Interventions: ED Discharge Assessment Last Done: 10/03/18 17:28 Instructions: DI for Abdominal Pain-Adult Activity Restrictions/Additional Instructions: *You have been diagnosed with abdominal pain *What to do: at this time no evidence of pancreatitis. CT scan and blood work within normal limits and reassuring. *Continue to take medications as directed *Follow up with your primary care provider in 2-3 days *Return to ER if you should have Increasing abdominal pain, persistent vomiting, past now or any new, worsening or concerning symptoms Prescriptions: No Action polyethylene glycol 3350 [Miralax] 17 GM powder in packet 17 gm PO QDAY Qty: 0 RF: 0 thyroid (pork) [Isabella Thyroid] 60 MG tablet 60 mg PO QDAY Qty: 0 RF: 0 ferrous sulfate [Iron (ferrous sulfate)] 325 mg (65 mg iron) tablet PO QPM Qty: 0 RF: 0 vit-iron fum-folic ac [Mynatal] 1 EACH capsule 1 cap PO QPM Qty: 0 RF: 0 cyanocobalamin (vitamin B-12) 1,000 MCG/1 ML solution 1,000 mcg IM QMONTH Qty: 0 RF: 0 biumhno-hxqahxvdnxeai-qyarksco [Excedrin Extra Strength] 1 EACH tablet 2 tab PO PRN PRNQty: 0 RF: 0 Referrals: Amanda Richey MINING TEACHER-[facility] [Primary Care Provider] -
[2018-10-03] MEDS: SODIUM CHLORIDE 0.9% 1,000 ML 1000 ML IV (14:28)
[2018-10-03 14:29] LABS: Add Manual Diff / Slide Review NO; Basophils Absolute Auto 0 /uL (0-100); Basophils Percent Auto 0.4 % (0-2); Eosinophils Absolute Auto 100 /uL (0-450); Eosinophils Percent Auto 0.9 % (2-4); Hematocrit 38.9 % (36-46); Hemoglobin 12.9 g/dL (12.0-16.0); Lymphocytes Absolute Auto 2000 /uL (1100-4500); Mean Corpuscular HGB Conc 33.2 % (30-36); Mean Corpuscular Hemoglobin 32.8 PG (26-34); Mean Corpuscular Volume 98.8 fL (80-100); Monocytes Absolute Auto 600 /uL (0-900); Monocytes Percent Auto 7.3 % (3-14); Neutrophils Absolute Auto 5000 /uL (1500-7000); Neutrophils Percent Auto 65.4 % (50-75); Platelet Count 252 X10^3/uL (150-400); Red Blood Cell Count 3.93 X10^6/uL (4.0-5.2); Red Cell Distribution Width 13.3 % (11.6-14.8); White Blood Cell Count 7.7 X10^3/uL (4.5-11.0)
[2018-10-03 14:51] LABS: Alanine Aminotransferase 40 IU/L (9-52); Albumin 4.5 g/dL (3.5-5.0); Albumin Globulin Ratio 1.7 (1.0-2.8); Alkaline Phosphatase 63 U/L (38-126); Aspartate Aminotransferase 37 IU/L (14-36); BUN Creatinine Ratio 28.3 (6-22); Bilirubin Total 0.6 mg/dL (0.2-1.3); Blood Urea Nitrogen 17 mg/dL (7-17); Calcium 9.5 mg/dL (8.4-10.2); Carbon Dioxide 24 mmol/L (22-32); Chloride 99 mmol/L (98-107); Estimated Glomerular Filt Rate > 60.0 mL/min (>60); Globulin 2.6 g/dL (1.7-4.1); Glucose 91 mg/dL (70-100); HEMOLYSIS < 15 (0-50); Lipase 94 U/L (23-300); Potassium 3.8 mmol/L (3.4-5.1); Sodium 132 mmol/L (137-145); Total Protein 7.1 g/dL (6.3-8.2)
[2018-10-03 15:15] VITALS: BP 124/64; PULSE 72; RESP 18; O2SAT 99
[2018-10-03 16:30] VITALS: BP 117/74; PULSE 79; RESP 16; O2SAT 99
[2018-10-03] MEDS: KETOROLAC 60 MG/2 ML VIAL 30 MG IV (17:05)
== END 2018-10-03 17:28 | disposition home or self-care (01) ==
PROVIDERS: Emergency Provider Emergency Medicine; PCP Nurse Practitioner Family
DX: R10.84 Generalized abdominal pain (principal)
CPT/HCPCS: 36591; 74177; 80053; 81003; 83690; 85025; 93005; 93010; 96361; 96374; 99283; 99285; J1885

== ENCOUNTER 2019-08-17 12:03 | Emergency (ER) | payer OTHER, SELFPAY ==
[2019-08-17 12:09] VITALS: PULSE 77; RESP 18; O2SAT 97
--- NOTE | 2019-08-17 12:21 | DI.RAD.S_ITS ---
PROCEDURE: XR CHEST 2V INDICATIONS: cough, fever TECHNIQUE: 2 views of the chest were acquired. COMPARISON: None. FINDINGS: Surgical changes and devices: None. Lungs and pleura: Lungs are clear. No pleural effusions or pneumothorax. Mediastinum: Mediastinal contours are normal. Heart size is normal. Bones and chest wall: No suspicious bony abnormalities. Soft tissues appear unremarkable. IMPRESSION: Negative chest. No acute cardiopulmonary process is evident. Dictated by: Fly Hernandez M.D. on 08/17/2019 at 11:53 Approved by: Fly Hernandez M.D. on 08/17/2019 at 12:02
[2019-08-17 12:23] VITALS: BP 129/85; PULSE 73; RESP 18; TEMP 37.1; O2SAT 98
--- NOTE | 2019-08-17 12:26 | PC.NURSE ---
pt states she was recently treated at [facility] for uri. today symptoms worsening, had episode of dizziness, c/o generalized pain, throat pain, back pain, fever.
[2019-08-17] MEDS: KETOROLAC 60 MG/2 ML VIAL 15 MG IV (12:30)
[2019-08-17] MEDS: ACETAMINOPHEN 325 MG TABLET 650 MG PO (12:31)
[2019-08-17] MEDS: SODIUM CHLORIDE 0.9% 1,000 ML 1000 ML IV (12:31)
--- NOTE | 2019-08-17 12:33 | ED.URI ---
HPI - URI/Sore Throat General Chief Complaint: Upper Respiratory Symptoms Stated Complaint: Respiratory Infection Time Seen by Provider: 08/17/19 12:03 Source: patient and EMS Mode of arrival: EMS Limitations: no limitations History of Present Illness HPI Narrative: Patient comes emergency department complaining of a sore throat and cough for about the last week. She states that she was seen at [facility] in the emergency department 3 days ago and found to have a negative strep test at that time. She states that she has been running temperatures up to 100.5 and that she nearly fainted today. That was what prompted her to come to the emergency department now. Patient states that she has not had any specific known sick contacts. She did travel to [place] at the end of July and return on the . She states she 1st started to have symptoms around the the 11 of August. Patient states that she has otherwise a fairly healthy person. She states she has some GI issues in doesn't eat very much. She tried to eat some eggs this morning, but felt nauseated afterwards. She states that she has tried to drink water Related Data Home Medications Medication Instructions Recorded Confirmed Excedrin Extra Strength 2 tab PO PRN PRN #0 10/28/17 08/17/19 Mynatal 1 cap PO QPM #0 10/28/17 08/17/19 cyanocobalamin (vitamin B-12) 1,000 mcg IM QMONTH #0 10/28/17 08/17/19 ferrous sulfate [Iron (ferrous 325 mg PO QPM #0 10/28/17 08/17/19 sulfate)] polyethylene glycol 3350 [Miralax] 17 gm PO DAILY #0 10/28/17 08/17/19 thyroid (pork) [Lincoln Thyroid] 60 mg PO DAILY #0 10/28/17 08/17/19 ergocalciferol (vitamin D2) 50,000 unit PO QWEEK 08/17/19 08/17/19 Allergies Allergy/AdvReac Type Severity Reaction Status Date / Time No Known Drug Allergies Allergy Verified 08/17/19 12:09 Review of Systems Review of Systems ROS Unobtainable: All systems reviewed & are unremarkable except as noted in HPI and below Constitutional Constitutional: Denies chills, Reports fatigue, Denies fever(s), Denies frequent falls, Denies lethargy and Denies weakness Eyes Eyes: Denies change in vision, Denies eye discharge, Denies irritation and Denies loss of vision ENT Ears, Nose, Mouth, and Throat: Denies change in voice, Reports dizziness, Denies neck pain, Reports sore throat and Denies throat swelling Cardiovascular Cardiovascular: Denies chest pain, Denies irregular heart rhythm, Denies lightheadedness, Denies palpitations, Denies dyspnea, Denies dyspnea on exertion and Denies orthopnea Respiratory Respiratory: Denies cough, Denies dyspnea, Denies dyspnea on exertion and Denies wheezing Gastrointestinal Gastrointestinal: Denies abdominal pain, Denies change in bowel habits, Denies diarrhea, Denies nausea and Denies vomiting Genitourinary Genitourinary: Denies hematuria, Denies flank pain, Denies urinary incontinence and Denies urinary urgency Musculoskeletal Musculoskeletal: Denies back pain, Denies muscle weakness, Denies neck pain, Denies numbness and Denies tingling Integumentary/Breasts Skin/Breast: Denies pruritus, Denies erythema, Denies rash and Denies wounds Neurologic Neurologic: Denies behavioral changes, Denies confusion, Reports dizziness, Denies frequent falls, Denies loss of vision, Denies numbness, Denies tingling and Denies weakness Psychiatric Psychiatric: Denies anxiety, Denies behavioral changes, Denies confusion, Denies depression, Denies homicidal ideation and Denies suicidal ideation Endocrine Endocrine: Reports fatigue, Denies flushing and Denies palpitations Hematologic/Lymphatic Hematologic/Lymphatic: Denies easy bruising Allergic/Immunologic Allergic/Immunologic: Denies urticaria, Denies throat swelling and Denies wheezing Patient History Medical History Hypothyroid (Acute) Pancreatitis (Acute) Surgical History History of Cristofer-en-Y gastric bypass (Acute) Social History Smoking Status: Unknown if ever smoked Smoking Status: Unknown if ever smoked alcohol intake frequency: other Substance Use Type: does not use Exam Initial Vital Signs Initial Vital Signs: Vital Signs Pulse Rate 77 08/17/19 12:09 Respiratory Rate 18 08/17/19 12:09 Pulse Oximetry 97 08/17/19 12:09 Const General: cooperative and well developed Nutritional Appearance: well nourished Orientation: alert, awake, oriented x3 and not confused [facility] Head: normocephalic and atraumatic Ears: external ears normal Nose: external nose normal and No nasal discharge Face and sinus: face symmetric and No dry mucous membranes Mouth: oral mucosae normal and moist mucous membranes Teeth and gingiva: dentition normal Throat: tonsils normal and uvula midline Eyes General: appearance normal, both eyes and all related structures Eyelids: eyelids normal Conjunctivae: conjunctivae normal Sclera: sclerae normal Pupils: PERRL EOM: EOM intact bilaterally Neck Neck: normal visual inspection, trachea midline, No lymphadenopathy, No midline deformity and No JVD Lymphatic: No lymphedema Chest Chest: normal inspection of the chest Resp Effort & Inspection: normal respiratory effort, able to speak in complete sentences, no respiratory distress and no use of accessory muscles Auscultation: clear to auscultation bilaterally, no rales, no rhonchi and no wheezes Cardio Rate: regular rate Rhythm: regular rhythm Heart Sounds: no click, no gallops, no murmurs and no rubs Pulses: normal peripheral pulses GI Inspection: non-distended Palpation: soft, no hepatosplenomegaly, No guarding, No pulsatile mass and No tender Auscultation: normal bowel sounds Back/Spine/Pelvis Back: No CVA tenderness Cervical Spine: cervical ROM normal and No pain with cervical ROM Thoracic/Lumbar Spine: thoracic and lumbar spine normal to inspection Skin General: no rashes or lesions noted, No jaundice and No petechiae Neuro General: alert, oriented x3, gait normal and no focal motor deficits Speech: speech normal Extrem General: full ROM, no clubbing, cyanosis or edema, no pedal edema and no calf tenderness Psych Appearance: well kempt Mental Status: mental status grossly normal Attitude: cooperative Thought Content: normal and suicidality Judgment: judgment good Course Course Course Narrative: Patient was treated in the emergency department with IV fluids, Tylenol, and Toradol. She was worked up with labs, chest x-ray, influenza, and mono tests, all of which were unremarkable. I went back to re-evaluate the patient, by which time several of her coworkers had arrived. I discussed with the patient that her symptoms and findings are most consistent with a viral illness, which will pass on its own. I've discussed with the patient that she ought to take a couple of days off work to rest and allow her body to recover. The patient states she will not take 2 days off, but only take 1 day, because she has an important meeting to conduct, which she feels cannot be done without her presence. I've discussed with the patient that I am sure that there is some way that things will be able to go on without her there, and that it is important that she get her rest to prevent worsening of her condition. The patient has once again refused to take 2 days off work, and states she only wants a work excuse for 1 day. I discussed with the patient that is important for her to get plenty of fluids. She may take ibuprofen and Tylenol as needed. Orders Ordered: Discontinued Medications Acetaminophen (Tylenol) 650 mg PO NOW ONE Stop: 08/17/19 12:22 Last Admin: 08/17/19 12:31 Dose: 650 mg Documented by: SUMEET Sodium Chloride (Normal Saline 0.9%) 1,000 mls @ 1,000 mls/hr IV BOLUS ONE Stop: 08/17/19 13:20 Last Infusion: 08/17/19 13:42 Dose: 0 mls/hr Documented by: Admin: 08/17/19 12:31 Dose: 1,000 mls/hr Documented by: SUMEET Ketorolac Tromethamine (Toradol) 15 mg IV NOW ONE Stop: 08/17/19 12:22 Last Admin: 08/17/19 12:30 Dose: 15 mg Documented by: SUMEET Vital Signs Vital signs: Vital Signs - 8 hr 08/17/19 12:09 08/17/19 12:23 Temperature 98.8 F Pulse Rate 77 73 Respiratory Rate 18 18 Blood Pressure [Left Arm] 129/85 Pulse Oximetry 97 98 MDM - URI/Sore Throat Medical Records Attestation: I reviewed the patient's medical records. Lab Data Attestation: I reviewed the patient's lab results. Result diagrams: 08/17/19 12:20 08/17/19 12:20 Labs: Lab Results 08/17/19 08/17/19 08/17/19 Range/Units 12:20 12:20 12:20 WBC 7.5 (4.5-11.0) X10^3/uL RBC 3.87 L (4.0-5.2) X10^6/uL Hgb 12.7 (12.0-16.0) g/dL Hct 36.6 (36-46) % MCV 94.5 (80-100) fL MCH 32.7 (26-34) PG MCHC 34.7 (30-36) % RDW 13.2 (11.6-14.8) % Plt Count 211 (150-400) X10^3/uL Neut % (Auto) 82.9 H (50-75) % Lymph % (Auto) 6.7 L (25-40) % Cotton % (Auto) 10.0 (3-14) % Eos % (Auto) 0.0 L (2-4) % Baso % (Auto) 0.4 (0-2) % Neut # (Auto) 6200 (5447-8187) /uL Lymph # (Auto) 500 L (9404-3922) /uL Cotton # (Auto) 800 (0-900) /uL Eos # (Auto) 0 (0-450) /uL Baso # (Auto) 0 (0-100) /uL Sodium 128 L (137-145) mmol/L Potassium 3.6 (3.4-5.1) mmol/L Chloride 94 L (98-107) mmol/L Carbon Dioxide 25 (22-32) mmol/L BUN 14 (7-17) mg/dL Creatinine 0.70 (0.52-1.04) mg/dL Estimated GFR > 60.0 (>60) mL/min BUN/Creatinine Ratio 20.0 (6-22) Glucose 103 H (70-100) mg/dL Calcium 8.8 (8.4-10.2) mg/dL Total Bilirubin 0.4 (0.2-1.3) mg/dL AST 47 H (14-36) IU/L ALT 29 (<35) IU/L Alkaline Phosphatase 62 (38-126) U/L Total Protein 6.5 (6.3-8.2) g/dL Albumin 4.2 (3.5-5.0) g/dL Globulin 2.3 (1.7-4.1) g/dL Albumin/Globulin Ratio 1.8 (1.0-2.8) Monoscreen (Negative) Influenza A (RT-PCR) Flu a negative (NEGATIVE) Influenza B (RT-PCR) Flu b negative (NEGATIVE) 08/17/19 Range/Units 12:20 WBC (4.5-11.0) X10^3/uL RBC (4.0-5.2) X10^6/uL Hgb (12.0-16.0) g/dL Hct (36-46) % MCV (80-100) fL MCH (26-34) PG MCHC (30-36) % RDW (11.6-14.8) % Plt Count (150-400) X10^3/uL Neut % (Auto) (50-75) % Lymph % (Auto) (25-40) % Cotton % (Auto) (3-14) % Eos % (Auto) (2-4) % Baso % (Auto) (0-2) % Neut # (Auto) (6563-5145) /uL Lymph # (Auto) (7540-3289) /uL Cotton # (Auto) (0-900) /uL Eos # (Auto) (0-450) /uL Baso # (Auto) (0-100) /uL Sodium (137-145) mmol/L Potassium (3.4-5.1) mmol/L Chloride (98-107) mmol/L Carbon Dioxide (22-32) mmol/L BUN (7-17) mg/dL Creatinine (0.52-1.04) mg/dL Estimated GFR (>60) mL/min BUN/Creatinine Ratio (6-22) Glucose (70-100) mg/dL Calcium (8.4-10.2) mg/dL Total Bilirubin (0.2-1.3) mg/dL AST (14-36) IU/L ALT (<35) IU/L Alkaline Phosphatase (38-126) U/L Total Protein (6.3-8.2) g/dL Albumin (3.5-5.0) g/dL Globulin (1.7-4.1) g/dL Albumin/Globulin Ratio (1.0-2.8) Monoscreen Negative (Negative) Influenza A (RT-PCR) (NEGATIVE) Influenza B (RT-PCR) (NEGATIVE) Imaging Data Chest x-ray: Radiologist's Impression: PROCEDURE: XR CHEST 2V INDICATIONS: cough, fever TECHNIQUE: 2 views of the chest were acquired. COMPARISON: None. FINDINGS: Surgical changes and devices: None. Lungs and pleura: Lungs are clear. No pleural effusions or pneumothorax. Mediastinum: Mediastinal contours are normal. Heart size is normal. Bones and chest wall: No suspicious bony abnormalities. Soft tissues appear unremarkable. IMPRESSION: Negative chest. No acute cardiopulmonary process is evident. Dictated by: Fly Hernandez M.D. on 08/17/2019 at 11:53 Approved by: Fly Hernandez M.D. on 08/17/2019 at 12:02 Discharge Plan Departure Patient Disposition: Home Clinical Impression: Viral infection Discharge Date/Time: 08/17/19 14:55 Instructions: DI for Viral Upper Respiratory Infection -- Adult, DI for Viral Pharyngitis Activity Restrictions/Additional Instructions: Your labs, overall, look good. Your white blood cell count is normal, and your chest x-ray is clear. Your influenza and mono tests are negative. You been found to have some mild dehydration, and most likely this, in combination with your body dealing with the viral illness that you have, cause due to feel dizzy today. Please be sure you get plenty of fluids to drink and follow-up with your primary care physician if you're not feeling better in the next week. At this point in time, there is no evidence of a serious or emergent condition. However, it is probably a good idea for you to take a couple of days off working get to feeling better. You may take Tylenol 650 mg every 4 hours and ibuprofen 600 mg every 6 hours for your fevers. Prescriptions: No Action polyethylene glycol 3350 [Miralax] 17 GM powder in packet 17 gm PO DAILY Qty: 0 RF: 0 thyroid (pork) [Lincoln Thyroid] 60 MG tablet 60 mg PO DAILY Qty: 0 RF: 0 ferrous sulfate [Iron (ferrous sulfate)] 325 mg (65 mg iron) tablet 325 mg PO QPM Qty: 0 RF: 0 Mynatal 1 EACH capsule 1 cap PO QPM Qty: 0 RF: 0 cyanocobalamin (vitamin B-12) 1,000 MCG/1 ML solution 1,000 mcg IM QMONTH Qty: 0 RF: 0 Excedrin Extra Strength 1 EACH tablet 2 tab PO PRN PRN (Reason: Headache) Qty: 0 RF: 0 ergocalciferol (vitamin D2) 50,000 unit capsule 50,000 unit PO QWEEK RF: 0 Referrals: Amanda Richey FNP-BC [Primary Care Provider] - Stand Alone Forms: Work Release Note, Work/School Release
[2019-08-17 12:34] LABS: Add Manual Diff / Slide Review NO; Basophils Absolute Auto 0 /uL (0-100); Basophils Percent Auto 0.4 % (0-2); Eosinophils Absolute Auto 0 /uL (0-450); Hematocrit 36.6 % (36-46); Hemoglobin 12.7 g/dL (12.0-16.0); Lymphocytes Absolute Auto 500 /uL (1100-4500); Lymphocytes Percent Auto 6.7 % (25-40); Mean Corpuscular HGB Conc 34.7 % (30-36); Mean Corpuscular Hemoglobin 32.7 PG (26-34); Mean Corpuscular Volume 94.5 fL (80-100); Monocytes Absolute Auto 800 /uL (0-900); Neutrophils Absolute Auto 6200 /uL (1500-7000); Neutrophils Percent Auto 82.9 % (50-75); Platelet Count 211 X10^3/uL (150-400); Red Blood Cell Count 3.87 X10^6/uL (4.0-5.2); Red Cell Distribution Width 13.2 % (11.6-14.8); White Blood Cell Count 7.5 X10^3/uL (4.5-11.0)
[2019-08-17 12:39] LABS: Alanine Aminotransferase 29 IU/L (<35); Albumin 4.2 g/dL (3.5-5.0); Albumin Globulin Ratio 1.8 (1.0-2.8); Alkaline Phosphatase 62 U/L (38-126); Aspartate Aminotransferase 47 IU/L (14-36); Bilirubin Total 0.4 mg/dL (0.2-1.3); Blood Urea Nitrogen 14 mg/dL (7-17); Calcium 8.8 mg/dL (8.4-10.2); Carbon Dioxide 25 mmol/L (22-32); Chloride 94 mmol/L (98-107); Estimated Glomerular Filt Rate > 60.0 mL/min (>60); Globulin 2.3 g/dL (1.7-4.1); Glucose 103 mg/dL (70-100); HEMOLYSIS < 15 (0-50); Potassium 3.6 mmol/L (3.4-5.1); Sodium 128 mmol/L (137-145); Total Protein 6.5 g/dL (6.3-8.2)
[2019-08-17 12:46] LABS: Monotest Negative (Negative)
[2019-08-17 13:10] LABS: Influenza A - CEPHEID Flu A NEGATIVE (NEGATIVE); Influenza B - CEPHEID Flu B NEGATIVE (NEGATIVE)
[2019-08-17 13:30] VITALS: BP 120/70; PULSE 74; RESP 16; O2SAT 97
[2019-08-17 14:43] VITALS: BP 122/75; PULSE 76; RESP 16; O2SAT 95
== END 2019-08-17 14:55 | disposition home or self-care (01) ==
PROVIDERS: Emergency Provider Emergency Medicine; PCP Nurse Practitioner Family
DX: J06.9 Acute upper respiratory infection, unspecified (principal)
CPT/HCPCS: 71046; 80053; 85025; 86318; 87502; 96361; 96374; 99283; 99284; J1885

== ENCOUNTER → 2020-02-18 14:32 | Outpatient (CLI) | payer OTHER, SELFPAY ==
--- NOTE | 2020-02-18 14:35 | DI.MG.S_ITS ---
BILATERAL DIGITAL DIAGNOSTIC MAMMOGRAM 3D/2D: 02/18/2020 CLINICAL: Left breast lump. Comparison is made to exams dated: 04/14/2015 mammogram - [facility], 01/27/2014 mammogram, and 09/15/2012 mammogram - [facility]. There are scattered fibroglandular elements in both breasts. No significant masses, calcifications, or other findings are seen in either breast. Specifically, no definite finding to correspond to the patient's palpable abnormality in the anterior 3:00 position. IMPRESSION: INCOMPLETE: NEEDS ADDITIONAL IMAGING EVALUATION There is no abnormality seen in the left breast to correspond with the palpable abnormality at 3 o'clock in the anterior depth, however, ultrasound is recommended. This was performed immediately following this exam. This exam was interpreted at Station ID: [id number]. NOTE: For mammograms, a report in lay terms will be sent to the patient. Approximately 15% of breast malignancies will not be visualized mammographically. In the management of a palpable breast mass, a negative mammogram must not discourage biopsy of a clinically suspicious lesion. Electronically Signed By: Ruthann beltran/:02/18/2020 15:46:18 ACR BI-RADS Category 0: Incomplete 3340F
--- NOTE | 2020-02-18 14:35 | DI.US.S_ITS ---
LIMITED ULTRASOUND OF LEFT BREAST: 02/18/2020 CLINICAL: Left breast palpable lump. Comparison is made to exams dated: 02/18/2020 mammogram, 04/14/2015 mammogram - [facility], 01/27/2014 mammogram, 09/15/2012 mammogram, and 08/19/2011 mammogram - [facility]. Real-time ultrasound of the left breast 2 o'clock region was performed. Santana scale images of the real-time examination were reviewed. No significant abnormalities were seen sonographically in the left breast. Specifically, no finding to correspond to the patient's palpable abnormality. IMPRESSION: NEGATIVE There is no sonographic correlate to the patient's palpable abnormality and no songraphic evidence of malignancy. Given the clinical finding however, follow up with the patient's clinician in 3 months for another clinical breast exam is recommended, as some malignancies are occult by mammogram and ultrasound. Return to annual mammogram screening schedule is recommended. Findings and recommendations were conveyed to the patient at time of exam. This exam was interpreted at Station ID: [id number]. Electronically Signed By: Ruthann beltran/:02/18/2020 16:19:57 letter sent: Clinical Evaluation Ultrasound BI-RADS: 1 Negative
== END ==
PROVIDERS: PCP Nurse Practitioner Family; Referring Provider Nurse Practitioner Family; Visit Provider Nurse Practitioner Family
DX: R92.8 Other abnormal and inconclusive findings on diagnostic imaging of breast (principal); N63.25 Unspecified lump in the left breast, overlapping quadrants
CPT/HCPCS: 76642; 77066; G0279

== ENCOUNTER → 2025-05-03 12:37 | Outpatient (CLI) | payer OTHER, SELFPAY ==
--- NOTE | 2025-05-03 12:40 | DI.US.S_ITS ---
PROCEDURE: US THYROID INDICATIONS: Lumps TECHNIQUE: Real-time scanning was performed of the thyroid gland, with image documentation. COMPARISON: None. FINDINGS: Thyroid: Right lobe measures 1.8 x 0.8 x 0.9 cm. Left lobe measures 2.2 x 0.8 x 0.4 cm. Isthmus is 0.2 cm thick. Echotexture is homogeneous. Palpable lumps are scanned. Along the midline, a palpable lump corresponds to the normal thyroid cartilage. Within the left neck, the palpable lump corresponds to the normal internal carotid artery. IMPRESSION: No significant abnormality can be seen at the sites of the palpable lumps. Normal appearing thyroid. ACR TI-RADS definitions and recommendations: TI-RADS 1 (benign): 0 points. FNA not needed. TI-RADS 2 (not suspicious): 2 points. FNA not needed. TI-RADS 3: 3 points. * FNA if 2.5 cm or larger, follow up if 1.5 cm or larger (at 1, 3, and 5 years). TI-RADS 4: 4-6 points. * FNA if 1.5 cm or larger, follow up if 1 cm or larger (at 1, 2, 3, and 5 years). TI-RADS 5: 7 points or more. * FNA if 1 cm or larger, follow up if 0.5 cm or larger (every year for 5 years). Dictated by: Himanshu Winters M.D. on 05/03/2025 at 12:49 Approved by: Himanshu Winters M.D. on 05/03/2025 at 12:52
== END ==
LOC: US 12:39
DX: F45.8 Other somatoform disorders (principal)
CPT/HCPCS: 76536